=== PATIENT | male | born 1990 | race Two or more races ===

== ENCOUNTER 2023-01-28 15:23 | Emergency (ER) | payer OTHER ==
[~2023-01-28] VITALS: Ht 188 cm; Wt 79.4 kg
[2023-01-28 17:55] LABS: PH,URINE 6.5 (5.0-8.0); URINE APPEARANCE Clear; URINE BILIRRUBIN Negative (NEGATIVE); URINE BLOOD Negative; URINE COLOR Yellow; URINE GLUCOSE Negative (NEGATIVE); URINE LEUKOCYTE Negative; URINE NITRATE Negative; URINE PROTEIN Negative (NEGATIVE)
[2023-01-28 17:57] LABS: HEMATOCRIT 40.9 % (39.0-48.0); HEMOGLOBIN 14.3 g/dL (13-16.00); MEAN CELL VOLUME 89.7 fL (80.0-100.00); MEAN CORPUSCULAR HEMOGLOBIN 31.3 pg (27.00-32.0); MEAN CORPUSCULAR HGB CONC 34.9 g/dl (32.0-36.0); PLATELET COUNT 205 K/uL (150-450); RED BLOOD COUNT 4.56 M/uL (4.00-6.00); RED CELL DISTRIBUTION WIDTH 12.8 % (11.5-14.5)
[2023-01-28 17:59] LABS: URINE RBC 3.5 uL (0.0-20.8)
[2023-01-28 18:02] LABS: URINE EPITHELIAL CELLS 0.7 uL (0.0-38.8); URINE WBC 0.9 uL (0.0-23.2)
== END 2023-01-28 19:17 | disposition home or self-care (01) ==
LOC: ER 15:23
PROVIDERS: Nurse Practitioner Family
DX: I86.1 Scrotal varices (principal)